=== PATIENT | female | born 1955 | race Caucasian/White ===

== ENCOUNTER 2024-01-11 11:54 | Emergency (ER) | payer OTHER ==
[2024-01-11] MEDS: Lidocaine 1% with EPINEPHrine 1:100,000 50 ML MDV INJECT ONE (13:27)
[2024-01-11] MEDS: Bacitracin Oint 1 GM U/D Packet TOP ONE (13:48)
== END 2024-01-11 14:08 | disposition home or self-care (01) ==
LOC: JP.ED 11:54
DX: S61.411A Laceration without foreign body of right hand, initial encounter (principal); W22.8XXA Striking against or struck by other objects, initial encounter; Z79.899 Other long term (current) drug therapy
CPT/HCPCS: 12002; 99282